=== PATIENT | male | born 1965 | race Caucasian/White ===

== ENCOUNTER 2019-03-27 09:43 | Outpatient (RCR) | payer BC ==
[~2019-03-27] VITALS: Ht 185.4 cm; Wt 88.9 kg
== END 2019-04-20 | disposition home or self-care (01) ==
LOC: WCC 09:43
DX: L97.822 Non-pressure chronic ulcer of other part of left lower leg with fat layer exposed (principal); I87.312 Chronic venous hypertension (idiopathic) with ulcer of left lower extremity; E11.622 Type 2 diabetes mellitus with other skin ulcer; Z79.84 Long term (current) use of oral hypoglycemic drugs; I10 Essential (primary) hypertension; Z87.442 Personal history of urinary calculi; Z79.899 Other long term (current) drug therapy
CPT/HCPCS: 11042; 29580; 87070; 87181; 87205; G0463

== ENCOUNTER 2020-04-15 14:12 | Outpatient (RCR) | payer BC | END 2020-04-20 | disposition home or self-care (01) | LOC: WCC 14:12 | DX: L97.822 Non-pressure chronic ulcer of other part of left lower leg with fat layer exposed (principal); I87.312 Chronic venous hypertension (idiopathic) with ulcer of left lower extremity; E11.622 Type 2 diabetes mellitus with other skin ulcer; Z79.84 Long term (current) use of oral hypoglycemic drugs; Z87.891 Personal history of nicotine dependence; E11.9 Type 2 diabetes mellitus without complications; I10 Essential (primary) hypertension; Z87.442 Personal history of urinary calculi; L03.116 Cellulitis of left lower limb | CPT/HCPCS: 11042; 87070; 87205 ==

== ENCOUNTER 2020-04-22 13:27 | Outpatient (RCR) | payer BC | END 2020-05-20 | disposition home or self-care (01) | LOC: WCC 13:27 | DX: L97.322 Non-pressure chronic ulcer of left ankle with fat layer exposed (principal); I87.2 Venous insufficiency (chronic) (peripheral); L03.116 Cellulitis of left lower limb | CPT/HCPCS: 11042; 87070; 87181; 87205; G0463 ==